=== PATIENT | male | born 1955 | race Two or more races ===

== ENCOUNTER 2016-11-26 12:24 | Day surgery (SDC) | payer OTHER ==
[~2016-11-26] VITALS: Ht 162.6 cm; Wt 56.8 kg
[~2016-11-26 12:24] MED LIST: BIDIL1 TABLET PO; LASIX40 MG PO; NORMODYNE,TRAN200 MG PO
[2016-11-26 13:50] VITALS: BP 188/92
[2016-11-26 14:30] VITALS: BP 172/80
[2016-11-26] MEDS ORDERED: NORCO 5/3251 TABLET PO (17:36)
[2016-11-26 19:08] VITALS: BP 180/80
[2016-11-26 20:10] VITALS: BP 205/87
[2016-11-26 21:50] VITALS: BP 174/81
[2016-11-26 22:42] VITALS: BP 140/70
== END 2016-11-26 22:55 | disposition home or self-care (01) ==
LOC: SDC 12:24 → 2SOUTH 14:50 → EDSTATUS 14:50 → SDC 14:52
PROC: 0WHG43Z Insertion of Infusion Device into Peritoneal Cavity, Percutaneous Endoscopic Approach (ICD-10-PCS; principal; 2016-11-26)
DX: I12.0 Hypertensive chronic kidney disease with stage 5 chronic kidney disease or end stage renal disease (principal); N18.6 End stage renal disease; E78.5 Hyperlipidemia, unspecified; E21.3 Hyperparathyroidism, unspecified; G47.30 Sleep apnea, unspecified
CPT/HCPCS: C1750; J0330; J0690; J1170; J2250; J2405; J2550; J2710; J3010; S0020